=== PATIENT | female | born 1985 | race Caucasian/White ===

== ENCOUNTER 2022-03-12 08:05 | Emergency (ER) | payer BC, SELFPAY ==
[2022-03-12 08:15] VITALS: BP 142/84; PULSE 108; RESP 19; TEMP 36.9; O2SAT 96; BMI 26.9
--- NOTE | 2022-03-12 08:25 | HMH.EDUTC ---
[facility] [place]: Lip swelling Disposition: Home, Self-Care Condition on Discharge: Good Instructions: DI for General Allergic Reactions, Prednisone Additional Instructions: Go straight to ER if you start having any swelling in your tongue or throat, trouble swallowing, trouble breathing etc Look around and make sure nothing has changed that you have not used a new lip gloss or balm Return if needed Follow up with ENT if swelling continues Follow up with your Family Doctor if no improvement or any worsening of symptoms Prescriptions: predniSONE [Prednisone 20mg Tab] 20 mg PO BID 5 Days #10 tab Transmission Status: Received by [id number] Referrals: Provider,MD Debo [Primary Care Provider] - As needed Miles Gonsalves MD [Physician] - Keron Toscano MD [Physician] - Time of Disposition: 08:40 Medical Decision Making - Kei Inquiry Pt receiving controlled substance: No Kei was queried for this patient: No Vital Signs: 03/12/22 08:15 03/12/22 08:33 Temperature 98.5 F 98.5 F Temperature Source Oral Pulse Rate 108 H Pulse Rate [Left Brachial] 108 H Respiratory Rate 19 19 Blood Pressure 142/84 H Blood Pressure [Left Arm] 142/84 H Blood Pressure Mean [Left Arm] 103 Blood Pressure Source [Left Arm] Automatic Cuff Blood Pressure Position [Left Arm] Sitting 02 Sat by Pulse Oximetry 96 Oxygen Delivery Method Room Air Orders (Tests/Meds): ED MEDICATIONS Discontinued Medications Generic Name Dose Route Start Last Admin Trade Name Freq PRN Reason Stop Dose Admin Famotidine 20 mg 03/12/22 08:25 03/12/22 08:32 Famotidine 20mg Tablet PO 03/12/22 08:26 20 mg ONCE ONE Administration Loratadine 10 mg 03/12/22 08:26 03/12/22 08:32 Loratadine 10mg Tablet PO 03/12/22 08:27 10 mg ONCE ONE Administration Methylprednisolone Sodium Succinate 125 mg 03/12/22 08:25 03/12/22 08:30 Methylprednisolone Sod Succ 125mg Vial IM 03/12/22 08:26 125 mg ONCE ONE Administration Medical Decision Narrative: Patient denies Swelling in lip improved after [place] [facility] [place] - General Stated complaint: swollen lip Time Seen by Provider: 03/12/22 08:25 Mode of Arrival: Ambulatory Source of Information: Patient Limitations: No Limitations Description of Symptoms (Recalled from Triage Doc. by RN): PATIENT C/O SWELLING TO LOWER LIP X 2 DAYS. NO KNOWN INJURY HEENT Symptoms (Recalled from RN notes): Yes Resp Symptoms (Recalled from RN notes): No Skin Symptoms (Recalled from RN notes): No MS Symptoms (Recalled from RN notes): No Functional Status (Recalled from RN notes): WNL - History of Present Illness Provider Complaint: Patient states that she woke up a couple days ago with swelling in her lower lip States that she is not sure if she may have been bitten by something in the middle of the night or not States that she took a claritan and the swelling went down but she woke up this morning and it was swollen again so she came in - Related Data Home Medications Medication Instructions Recorded Confirmed norethindrone ac-eth estradioL 1 each PO DAILY 03/12/22 03/12/22 [Loestrin 21 1-20 Tablet] Previous Rx's Medication Instructions Recorded predniSONE [Prednisone 20mg 20 mg PO BID 5 Days #10 tab 03/12/22 Tab] Allergies Allergy/AdvReac Type Severity Reaction Status Date / Time No Known Allergies Allergy Verified 03/12/22 08:23 - Worker's Comp Is this a Worker's Comp case?: No [facility] History - Hepatitis A Screen Attestation statement:: This patient has been screened for Hepatitis A risk factors. I have reviewed the patient's past medical history: Yes - Social History Alcohol Intake: never Occupational Status: other ROS Obtained: Yes All systems reviewed & no additional complaints, Yes Systems reviewed as appropriate & no additional complaints - ENT Ears, Nose, Mouth, and Throat: Re
[2022-03-12 08:33] VITALS: BP 142/84; PULSE 108; RESP 19; TEMP 36.9; O2SAT 96
== END 2022-03-12 08:51 | disposition home or self-care (01) ==
PROVIDERS: Emergency Provider Nurse Practitioner
DX: R22.9 Localized swelling, mass and lump, unspecified (principal); K13.0 Diseases of lips
CPT/HCPCS: 96372; 99212; G0463

== ENCOUNTER 2023-10-16 22:27 | Outpatient (CLI) | payer OTHER, SELFPAY | END 2023-10-16 23:59 | LOC: LAB.DROPOF 22:27 | PROVIDERS: PCP Student in an Organized Health Care Education/Training Program; Visit Provider Student in an Organized Health Care Education/Training Program | DX: J02.9 Acute pharyngitis, unspecified (principal); R06.02 Shortness of breath; R50.9 Fever, unspecified; R05.9 Cough, unspecified; H92.03 Otalgia, bilateral | CPT/HCPCS: 87635 ==